=== PATIENT | female | born 1935 | race Hispanic/Latino ===

== ENCOUNTER 2019-02-16 18:25 | Emergency (ER) | payer MEDICARE ==
[2019-02-16] MEDS ORDERED: TETANUS/DIPHTHERIA TOXOID [ADULT] 0.5 ML VIAL IM ONE (19:33)
== END 2019-02-16 20:33 | disposition home or self-care (01) ==
LOC: EDH 18:25
DX: S09.8XXA Other specified injuries of head, initial encounter (principal); S50.311A Abrasion of right elbow, initial encounter; W18.39XA Other fall on same level, initial encounter; Y93.01 Activity, walking, marching and hiking; Y92.89 Other specified places as the place of occurrence of the external cause; Y99.8 Other external cause status; F03.90 Unspecified dementia, unspecified severity, without behavioral disturbance, psychotic disturbance, mood disturbance, and anxiety
CPT/HCPCS: 70450; 72125; 73080; 90471; 90714

== ENCOUNTER 2023-05-13 14:42 | Emergency (ER) | payer MEDICARE ==
[~2023-05-13] VITALS: Ht 157.5 cm; Wt 63.5 kg
[~2023-05-13 14:42] MED LIST: ERGO2000 PO; SIMV-43 PO
[2023-05-13] MEDS: LORAZEPAM 2 MG/ML 1 ML VIAL IM ONE (20:14)
[2023-05-13] MEDS: HALOPERIDOL INJ 5 MG/ML VIAL IM SCH (21:29)
[2023-05-13] MEDS: LORAZEPAM 2 MG/ML 1 ML VIAL IVP ONE (21:29)
[2023-05-13] MEDS: DiphenhydrAMINE HCL 50 MG/ML VIAL IV ONE (21:29)
[2023-05-13 23:11] VITALS: BP 143/86; PULSE 101; RESP 18; O2SAT 98
== END 2023-05-14 02:21 ==
LOC: EDH 14:42
DX: S70.01XA Contusion of right hip, initial encounter (principal); S80.11XA Contusion of right lower leg, initial encounter; E78.00 Pure hypercholesterolemia, unspecified; F02.80 Dementia in other diseases classified elsewhere, unspecified severity, without behavioral disturbance, psychotic disturbance, mood disturbance, and anxiety; Z86.16 Personal history of COVID-19; W18.39XA Other fall on same level, initial encounter; Y93.89 Activity, other specified; Y92.89 Other specified places as the place of occurrence of the external cause; Y99.8 Other external cause status
CPT/HCPCS: 99285; 70450; 96374; 96375; 73562; 73030; 72192; 96372; J1200; J1630; J2060 ×2